=== PATIENT | male | born 1955 | race Caucasian/White ===

== ENCOUNTER 2018-03-07 01:22 | Outpatient (CLI) | payer BC, SELFPAY ==
--- NOTE | 2018-03-07 07:50 | DI.RAD_ITS ---
SYMPTOMS/DIAGNOSIS: PLEURITIC PAIN, HX PLEURISY, PERSONAL H/O OTHER DISEASE RESPIRATORY SYSTEM, PLEURODYNIA, R07.81 PA AND LATERAL CHEST: The heart is normal in size. The lungs are clear. The mediastinal structures and pleura appear intact. CONCLUSION: Normal chest. No evidence of acute cardiopulmonary disease.
== END 2018-03-07 01:42 ==
PROVIDERS: PCP Student in an Organized Health Care Education/Training Program; Visit Provider Student in an Organized Health Care Education/Training Program
DX: R07.81 Pleurodynia (principal); Z87.09 Personal history of other diseases of the respiratory system
CPT/HCPCS: 71046

== ENCOUNTER 2018-03-28 14:32 | Outpatient (CLI) | payer BC, SELFPAY ==
[2018-03-28 15:04] LABS: Hemoglobin A1C 5.5 % (4.5-6.2)
== END 2018-03-28 14:52 ==
PROVIDERS: PCP Student in an Organized Health Care Education/Training Program; Visit Provider Student in an Organized Health Care Education/Training Program
DX: R73.9 Hyperglycemia, unspecified (principal)
CPT/HCPCS: 36415; 83036

== ENCOUNTER 2018-04-07 12:39 | Emergency (ER) | payer BC, SELFPAY ==
[2018-04-07 12:44] VITALS: BP 151/93; PULSE 82; RESP 16; TEMP 36.7; O2SAT 96
--- NOTE | 2018-04-07 12:55 | W.ED.GENAD ---
Discharge Plan Disposition Patient Disposition: HOME Condition: Improving Discharge Details Chief Complaint: Nk/Back Pain Clinical Impression: Contusion of back Primary Care Provider: Soco Ni ED Provider: Giselle Vera Home Meds and New Rx's Prescriptions: New cyclobenzaprine 10 mg tablet 10 mg PO TID PRN (Reason: muscle spasm) Qty: 10 RF: 0 lidocaine [Lidoderm] 5 % adhesive patch,medicated 1 patch TP DAILY PRN (Reason: pain ) Qty: 15 RF: 0 ibuprofen 600 mg tablet 600 mg PO QID PRN (Reason: pain) Qty: 20 RF: 0 Continued carbamazepine [Carbatrol] 200 MG capsule, ER multiphase 12 hr 200 mg PO BID Qty: 60 RF: 0 carbamazepine [Carbatrol] 300 MG capsule, ER multiphase 12 hr 300 mg PO BID 60 Days RF: 0 acetaminophen [Acetaminophen Extra Strength] 500 MG tablet 1,000 mg PO Q6H PRN RF: 0 docusate sodium [Stool Softener] 100 MG capsule 100 mg PO PRN PRNRF: 0 aspirin [Aspir-81] 81 MG tablet,delayed release (DR/EC) 81 mg PO DAILY RF: 0 famotidine 20 MG tablet 20 mg PO DAILY RF: 0 meclizine 12.5 MG tablet 12.5 mg PO QID PRNQty: 20 RF: 1 cholecalciferol (vitamin D3) 2,000 UNIT tablet 2,000 unit PO DAILY RF: 0 atorvastatin [Lipitor] 80 MG tablet 80 mg PO DAILY Qty: 90 RF: 3 lisinopril-hydrochlorothiazide 1 EACH tablet 1 tab-cap PO DAILY Qty: 90 RF: 3 nitroglycerin 0.4 MG tablet, sublingual 0.4 mg Sublingual PRN Qty: 25 RF: 2 Discharge Instructions Instructions: Contusion in Adults (ED), Back Pain (ED) Additional Instructions: Encourage hydration. Encourage gentle stretching and frequent ambulation. Tylenol and/or ibuprofen as needed for discomfort. Flexeril as needed for spasm. Lidoderm patches as prescribed. Please follow-up with primary care if pain is not improving If you develop pain radiating into your extremities, altered sensation, change in bowel or bladder habits, increased pain, abdominal pain, fever/chills or other new/worsening symptoms please seek care urgently once again Stand Alone Forms: Work Release Referrals: Soco Ni DO [Primary Care Provider] - Discharge Data Discharge Date/Time-TO BE ENTERED AT DEPARTURE: 04/07/18 14:53 Medical Decision Making Patient is a 62 year old male, accompanied by sonjose, with c/c of left sided mid back pain. reports that yesterday he was exiting his appartment when he slipped on a step and fell backward landing on the step above with the left mid back. No midline tenderness. No paraspinal tenderness. Pain with rotation to the left but ROM otherwise without discomfort and intact. Neuro exam normal. He has incontinence at baseline, associated with prostate surgery, reports no change in this. Was able to gie a urine specimen. Post void residual 0. He feels tight over the mid lateral left back, this is area of discomfort. No pain with palpation/percussion over the left CVA but he does report that pain can be in this area, primarily inferior to this. UA will be obtained. He is concerned for rib fractures. No pain with inspiration, lungs are clear. No pain or instability with pelvic testing. Plan to XR left ribs to evaluate for any fracture. No abdominal pain on exam, no change in bowel or bladder habits. Patient given Ibuprofen, Flexeril and Lidoderm patch. XR reviewed by radiologist: FINDINGS: Bones/joints: No rib fracture or focal rib lesion. Normal bone density. Soft tissues: Normal. IMPRESSION: No fracture. Discussed findings with the patient. After about treatment, he reports that while he still has discomfort it is improving. He has been primarily sedentary since the incident yesterday, I encouraged gentle stretching and frequent ambulation. We discussed activities that he should avoid. Pain is improved to satisfactory level. Will prescribe Ibuprofen , Flexeril and Lidoderm patches. We discussed new/worsening symptomsand when to seek care urgently once again. Advised that this is likely musculoskeletal pain, no evidence of spinal injury. No hematuria, have low suspicion for kidney injury at this time. Advised f/u with PCP this week. 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 All of his questions and cocnerns were addressed, he is in agreement with this plan. HPI General Mode of arrival: ambulatory. Date/Time Provider Initiated Documentation: 04/07/18 12:55. Limitations to Documentation: no limitations. Information obtained by: patient, family (accompanied by son) and RN notes reviewed. History of Present Illness 62 year old M presents to the emergency department with the chief complaint of left sided mid back pain, described as moderate, with intensity rated at 8. Quality is described as aching, and is localized to the back. Patient reports no radiation. Patient started experiencing this day(s) and it has been constant. Immobilization improves symptom(s), Movement worsens symptoms . Patient notes no other symptoms.; denies chest pain, cough, fever/chills, loss of appetite, nausea/vomiting, rash, shortness of breath and weakness. Patient did receive the following treatments prior to arrival, other (Tylenol) Related Data Home Medications Medication Instructions Recorded Confirmed carbamazepine [Carbatrol] 200 mg PO BID #60 tab-cap 06/26/12 04/07/18 carbamazepine [Carbatrol] 300 mg PO BID 60 Days tab-cap 06/26/12 04/07/18 acetaminophen [Acetaminophen Extra 1,000 mg PO Q6H PRN tab-cap 06/10/15 04/07/18 Strength] docusate sodium [Stool Softener] 100 mg PO PRN PRN cap 08/17/15 04/07/18 aspirin [Aspir-81] 81 mg PO DAILY tab-cap 03/16/16 04/07/18 famotidine 20 mg PO DAILY tab-cap 05/23/16 04/07/18 meclizine 12.5 mg PO QID PRN #20 tab-cap 01/02/17 04/07/18 cholecalciferol (vitamin D3) 2,000 unit PO DAILY 01/23/17 04/07/18 atorvastatin [Lipitor] 80 mg PO DAILY #90 tab 08/11/17 04/07/18 lisinopril-hydrochlorothiazide 1 tab-cap PO DAILY #90 tab-cap 08/11/17 04/07/18 nitroglycerin 0.4 mg SUBLINGUAL PRN #25 tab 08/11/17 04/07/18 cyclobenzaprine 10 mg PO TID PRN #10 tab 04/07/18 ibuprofen 600 mg PO QID PRN #20 tab 04/07/18 lidocaine [Lidoderm] 1 patch TP DAILY PRN #15 each 04/07/18 Previous Rx's Medication Instructions Recorded atorvastatin [Lipitor] 80 mg PO DAILY #90 tab 08/11/17 lisinopril-hydrochlorothiazide 1 tab-cap PO DAILY #90 tab-cap 08/11/17 nitroglycerin 0.4 mg SUBLINGUAL PRN #25 tab 08/11/17 cyclobenzaprine 10 mg PO TID PRN #10 tab 04/07/18 ibuprofen 600 mg PO QID PRN #20 tab 04/07/18 lidocaine [Lidoderm] 1 patch TP DAILY PRN #15 each 04/07/18 Allergies Allergy/AdvReac Type Severity Reaction Status Date / Time erythromycin base Allergy Unknown DUE TO Verified 04/07/18 12:49 CARBATROL amitriptyline AdvReac Mild h/o wt gain Verified 04/07/18 12:49 General Stated Complaint: Nk/Back Pain NATHAN: 3 Review of Systems Constitutional Reports as per HPI, Denies chills, Denies fever(s), Denies headache(s), Denies lethargy and Denies poor appetite Eyes Denies change in vision ENT Denies headache(s) and Denies neck pain Cardiovascular Reports as per HPI, Denies dyspnea and Denies dyspnea on exertion Respiratory Denies dyspnea, Denies dyspnea on exertion and Denies wheezing Gastrointestinal Reports as per HPI, Denies abdominal pain, Denies fecal incontinence, Denies diarrhea, Denies nausea and Denies vomiting Genitourinary Reports urinary incontinence (reports mild incontinence at baseline, no change in this since fall) Musculoskeletal Reports as per HPI, Denies abnormal gait, Reports back pain, Denies joint swelling, Reports muscle cramps, Denies muscle weakness, Denies neck pain, Denies numbness, Denies radiating pain into limb, Reports stiffness and Denies tingling Integumentary/Breasts Reports as per HPI and Denies rash Neurologic Denies abnormal gait, Denies headache(s), Denies numbness and Denies tingling Allergic/Immunologic Denies wheezing [facility] Medical History Vitamin D deficiency (Acute 06/22/09) Sleep apnea in adult (Acute) Situational mixed anxiety and depressive disorder (Acute 01/26/15) Right shoulder pain (Acute 10/05/15) Right rotator cuff tendinitis (Acute 07/11/15) Primary malignant neoplasm of prostate (Acute 07/20/08) Other convulsions (Acute 03/12/89) Osteopenia of multiple sites (Acute 01/18/17) Other convulsions (Acute 03/12/89) Hyperlipidemia (Acute 07/11/11) Hearing loss (Acute 07/11/11) Gastroesophageal reflux disease (Acute 04/29/13) Essential hypertension (Acute 03/12/99) Dysthymic disorder (Acute 07/11/99) Coronary artery disease involving [place] coronary artery of [place] heart without angina pectoris (Acute 04/26/09) Abnormal GGT test (Acute) Atherosclerosis of [place] coronary artery of [place] heart without angina pectoris Essential hypertension GERD (gastroesophageal reflux disease) Neoplasm of prostate Sleep apnea Surgical History Colonoscopy - MAC (12/16/15) Coronary Stent (04/12/09) EGD - IV Sedation (10/29/10) Prostatectomy (12/01/11) Tonsillectomy (~1961) Trigger Finger release (04/21/15) Family History Mother Essential hypertension Heart disease Father Personal history of malignant neoplasm Stroke Brother Age: 59 No problems noted. Social History current occupation: [employer] Smoking/Tobacco Use Status: Never alcohol intake: current alcohol intake frequency: holidays/special occasions only substance use type: does not use Exam Const General: cooperative, healthy appearing, comfortable, no acute distress and well developed Nutritional Appearance: average body habitus and well nourished Orientation: alert, awake and oriented x3 HENMT Head: normal to inspection Ears: hearing grossly normal bilaterally Mouth: moist mucous membranes Chest Chest: normal inspection of the chest, normal palpation of entire chest wall and no crepitus Resp Effort & Inspection: normal respiratory effort, able to speak in complete sentences and no respiratory distress Auscultation: clear to auscultation bilaterally, no rales, no rhonchi and no wheezes Cardio Rate: regular rate Rhythm: regular rhythm Heart Sounds: S1 normal and S2 normal GI Inspection: normal to inspection, no edema and non-distended Palpation: soft, no hepatosplenomegaly, not firm, no guarding, not rigid and nontender Auscultation: normal bowel sounds Back/Spine/Pelvis Back: CVA tenderness (left sided, this is the upper most aspect of area of discomfort, no pain wi), No mass, No erythema, No warmth and No Rutledge-Canchola sign present Cervical Spine: normal cervical lordosis and cervical ROM normal Thoracic/Lumbar Spine: No surgical scar(s) present, straight leg raise negative bilaterally, pain with thoraco-lumbar ROM (pain with rotation to the left, no pain otherwise), No paraspinal tenderness, thoraco-lumbar spasm (feels tight along left lateral mid back), No thoracic spinal tenderness and No lumbar spinal tenderness Pelvis: no pain with anterior-posterior compression, no pain with lateral compression, no buttock ecchymosis, no buttock tenderness and no buttock swelling Sacroiliac joints: bilaterally nontender Sacrum: no tenderness Skin General skin exam: no rashes or lesions noted Trauma: no lacerations or abrasions Neuro General: alert, awake, oriented x3, gait normal, tone normal and moves all extremities Cognition: normal cognition Speech: speech normal Gait: normal gait Motor: muscle tone normal throughout, strength 5/5 throughout, no movement abnormalities noted and no fasciculations Sensory Exam: no sensory deficits noted (no saddle paresthesias) and lower extremity (normal) DTR's: Rt Patellar: 2+, Lt Patellar: 2+, Rt Ankle: 2+ and Lt Ankle: 2+ Plantar Reflexes: Downgoing: bilateral Extrem General: normal to inspection, normal capillary refill, no pedal edema, no calf tenderness and normal gait Psych Appearance: grossly normal and well kempt Mental Status: mental status grossly normal Speech and Movement: speech and movement normal Course Vital Signs Temperature 36.7 C 04/07/18 12:44 Pulse 82 04/07/18 12:44 Respiratory Rate 16 04/07/18 12:44 Blood Pressure 151/93 H 04/07/18 12:44 Pulse Oximetry 96 04/07/18 12:44 Temperature 36.7 C 04/07/18 12:44 Temperature Source Temporal Artery Scan 04/07/18 12:44 Pulse 82 04/07/18 12:44 Respiratory Rate 16 04/07/18 12:44 Respiratory Effort Non-Labored 04/07/18 12:47 Blood Pressure 151/93 H 04/07/18 12:44 Blood Pressure Position Sitting 04/07/18 12:44 Pulse Oximetry 96 04/07/18 12:44 Oxygen Delivery Method Room Air 04/07/18 12:44 Oxygen Flow Rate 0 04/07/18 12:44 Pain Level 8 04/07/18 12:44
[2018-04-07 13:05] LABS: Bilirubin Negative (Negative); Blood Negative (Negative); Clarity Clear; Glucose Negative (Negative); Ketones 15 mg/dL (Negative); Leukocyte Esterase Negative (Negative); Nitrite Negative (Negative); Urobilinogen 0.2 EU/dL (Up TO 0.2)
--- NOTE | 2018-04-07 13:11 | DI.RAD_ITS ---
SYMPTOM/DIAGNOSIS: FELL, LT LATERAL LOWER PAIN LEFT RIBS AND PA AND LATERAL CHEST: Comparison is made with chest xray dated 03/07/18. The heart size is normal. The aorta is mildly tortuous. The lungs are clear. No pneumothorax is seen. Three views of the ribs were performed. No fracture is identified. IMPRESSION: Negative chest and left ribs.
[2018-04-07 13:21] LABS: Bacteria Negative HPF (Negative); C & S Indicated? No; Casts Negative LPF (Negative); Crystals Negative HPF (Negative); Epithelial Cells Negative HPF (Negative); Mucus Trace (Negative); RBC Negative (0-2); WBC 0-2 HPF (0-5)
[2018-04-07] MEDS: Ibuprofen 600 MG TAB PO (13:57)
[2018-04-07] MEDS: Cyclobenzaprine 10 MG TAB PO (13:57)
[2018-04-07] MEDS: Lidocaine 5% Patch 1 PATCH TP (14:01)
--- NOTE | 2018-04-07 14:12 | DI.VRAD_ITS ---
EXAM: XR Left Ribs, 2 Views EXAM DATE/TIME: 04/07/2018 1:13 PM CLINICAL HISTORY: 62 years old, male; Injury or trauma; Fall; Initial encounter; Blunt trauma (contusions or hematomas); Rib area, left side; Injury details: Bb symone point of pain TECHNIQUE: XR Left ribs 2 views. COMPARISON: CR XR CHEST 2V PA LATERAL 03/07/2018 7:53 AM FINDINGS: Bones/joints: No rib fracture or focal rib lesion. Normal bone density. Soft tissues: Normal. IMPRESSION: No fracture. EXAM: XR Chest, 2 Views EXAM DATE/TIME: 04/07/2018 1:13 PM CLINICAL HISTORY: 62 years old, male; Injury or trauma; Fall; Initial encounter; Blunt trauma (contusions or hematomas); Rib area, left side; Injury details: Bb symone point of pain TECHNIQUE: XR of the chest, 2 views. COMPARISON: CR XR CHEST 2V PA LATERAL 03/07/2018 7:53 AM FINDINGS: The cardiomediastinal silhouette and pulmonary vasculature are within normal limits. The lungs are clear. No pleural effusion or pneumothorax is identified. Degenerative spondylosis of the thoracic spine. No fracture. IMPRESSION: No acute process. Dictated and Authenticated by: Seven Coe MD. Ordering:ELVIRA Desai MD
== END 2018-04-07 14:53 | disposition home or self-care (01) ==
PROVIDERS: Emergency Provider Physician Assistant; PCP Student in an Organized Health Care Education/Training Program
DX: S20.222A Contusion of left back wall of thorax, initial encounter (principal); W10.8XXA Fall (on) (from) other stairs and steps, initial encounter
CPT/HCPCS: 99283; 71046; 71100; 81003; 81015

== ENCOUNTER 2018-08-07 07:28 | Outpatient (CLI) | payer BC, SELFPAY ==
[2018-08-07 08:47] LABS: ALT 31 U/L (12-78); AST 21 U/L (15-37); Albumin 3.6 g/dL (3.4-5.0); Alkaline Phosphatase 106 U/L (46-116); Anion Gap 8.3 mmol/L (3-11); BUN 14 mg/dL (7-18); Bilirubin, Total 0.4 mg/dL (0.2-1.0); CO2 28.7 mmol/L (21.0-32.0); Chloride 101 mmol/L (98-107); Cholesterol 163 mg/dL (50-200); Glucose 92 mg/dL (70-100); HDL Cholesterol 49 mg/dL (40-60); LDL CHOLESTEROL 83 mg/dL (<100); Sodium 138 mmol/L (136-145); TSH (W/Ref FT4) 1.18 uIU/mL (0.358-3.74); Total Protein 6.9 g/dL (6.4-8.2); Triglyceride 134 mg/dL (30-150)
[2018-08-08 06:36] LABS: Vitamin D 25 Total 40.4 ng/ml (30-100)
== END 2018-08-07 07:48 ==
PROVIDERS: PCP Student in an Organized Health Care Education/Training Program; Visit Provider Student in an Organized Health Care Education/Training Program
DX: Z13.220 Encounter for screening for lipoid disorders (principal); R53.83 Other fatigue; E55.9 Vitamin D deficiency, unspecified; N28.9 Disorder of kidney and ureter, unspecified
CPT/HCPCS: 36415; 80053; 80061; 82306; 83721; 84443

== ENCOUNTER 2019-09-05 13:13 | Emergency (ER) | payer OTHER, SELFPAY ==
[2019-09-05 13:32] VITALS: BP 132/76; PULSE 88; RESP 16; TEMP 37.1; O2SAT 99
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
[2019-09-05] MEDS: Acetaminophen 500 MG TAB PO (13:50)
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
[2019-09-05 15:21] VITALS: BP 132/76; PULSE 88; RESP 16; TEMP 37.1; O2SAT 99
== END 2019-09-05 15:10 | disposition home or self-care (01) ==
PROVIDERS: Emergency Provider Registered Nurse Emergency; PCP Student in an Organized Health Care Education/Training Program
DX: S42.032A Displaced fracture of lateral end of left clavicle, initial encounter for closed fracture (principal); S22.41XA Multiple fractures of ribs, right side, initial encounter for closed fracture; V18.0XXA Pedal cycle driver injured in noncollision transport accident in nontraffic accident, initial encounter; Y93.55 Activity, bike riding; I10 Essential (primary) hypertension
CPT/HCPCS: 23500; 99284; 73030; 99283; L3650

== ENCOUNTER 2019-09-17 11:12 | Outpatient (CLI) | payer OTHER, SELFPAY ==
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
== END 2019-09-17 11:32 ==
PROVIDERS: PCP Student in an Organized Health Care Education/Training Program; Visit Provider Student in an Organized Health Care Education/Training Program
DX: S42.032D Displaced fracture of lateral end of left clavicle, subsequent encounter for fracture with routine healing (principal); S42.001A Fracture of unspecified part of right clavicle, initial encounter for closed fracture; S22.41XA Multiple fractures of ribs, right side, initial encounter for closed fracture; V19.9XXA Pedal cyclist (driver) (passenger) injured in unspecified traffic accident, initial encounter; Y93.55 Activity, bike riding
CPT/HCPCS: 99204; 99215; 73000

== ENCOUNTER 2019-10-01 04:01 | Outpatient (CLI) | payer OTHER, SELFPAY ==
[2019-10-01 09:27] LABS: ALT 31 U/L (16-63); AST 21 U/L (15-37); Alkaline Phosphatase 133 U/L (46-116); Anion Gap 8.2 mmol/L (3-11); BUN 26 mg/dL (7-18); Bilirubin, Total 0.3 mg/dL (0.2-1.0); CO2 29.8 mmol/L (21.0-32.0); CREATININE 1.07 mg/dL (0.70-1.30); Calcium 9.4 mg/dL (8.5-10.1); Chloride 104 mmol/L (98-107); Glucose 92 mg/dL (74-106); Potassium 3.9 mmol/L (3.5-5.1); Sodium 142 mmol/L (136-145); Total Protein 7.2 g/dL (6.4-8.2)
== END 2019-10-01 04:21 ==
PROVIDERS: PCP Student in an Organized Health Care Education/Training Program; Visit Provider Student in an Organized Health Care Education/Training Program
DX: T39.1X1A Poisoning by 4-Aminophenol derivatives, accidental (unintentional), initial encounter (principal); Z79.1 Long term (current) use of non-steroidal anti-inflammatories (NSAID)
CPT/HCPCS: 36415; 80053

== ENCOUNTER 2019-10-29 09:53 | Outpatient (CLI) | payer OTHER, SELFPAY ==
--- NOTE | 2019-10-29 09:15 | DI.RAD_ITS ---
EXAM: XR CLAVICLE RT INDICATION: fu right shoulder pain. COMPARISON: No exams were available for comparison TECHNIQUE: 2D digital imaging was performed. FINDINGS: There has been no change in the alignment of the distal clavicle fracture. DATA REPOSITORY: RADIATION DOSE DELIVERED:
== END 2019-10-29 10:13 ==
PROVIDERS: PCP Student in an Organized Health Care Education/Training Program; Referring Provider Student in an Organized Health Care Education/Training Program; Visit Provider Student in an Organized Health Care Education/Training Program
DX: S42.031D Displaced fracture of lateral end of right clavicle, subsequent encounter for fracture with routine healing (principal); M25.511 Pain in right shoulder; V19.9XXD Pedal cyclist (driver) (passenger) injured in unspecified traffic accident, subsequent encounter; I10 Essential (primary) hypertension
CPT/HCPCS: 99213; 73000

== ENCOUNTER 2019-12-10 10:37 | Outpatient (CLI) | payer OTHER, SELFPAY ==
--- NOTE | 2019-12-10 08:30 | DI.RAD_ITS ---
EXAM: XR CLAVICLE RT INDICATION: fu right shoulder. COMPARISON: CR XR SHOULDER RT COMPLETE 2+V from 09/05/2019 CR XR CLAVICLE RT from 10/29/2019 TECHNIQUE: 2D digital imaging was performed. FINDINGS: Has been no change in alignment of the distal clavicle fracture. No bony bridging is seen at this ti me. Degenerative changes are again noted of the AC joint and glenohumeral joint. There are old righ t rib fractures. DATA REPOSITORY: RADIATION DOSE DELIVERED:
== END 2019-12-10 10:57 ==
PROVIDERS: PCP Student in an Organized Health Care Education/Training Program; Referring Provider Student in an Organized Health Care Education/Training Program; Visit Provider Student in an Organized Health Care Education/Training Program
DX: S42.031D Displaced fracture of lateral end of right clavicle, subsequent encounter for fracture with routine healing (principal); M19.011 Primary osteoarthritis, right shoulder; S42.001A Fracture of unspecified part of right clavicle, initial encounter for closed fracture; V19.9XXA Pedal cyclist (driver) (passenger) injured in unspecified traffic accident, initial encounter; M25.511 Pain in right shoulder; I10 Essential (primary) hypertension
CPT/HCPCS: 99214; 73000

== ENCOUNTER 2020-02-16 16:51 | Emergency (ER) | payer OTHER, SELFPAY ==
[2020-02-16 16:54] VITALS: BP 162/97; PULSE 90; RESP 16; TEMP 36.6; O2SAT 96
--- NOTE | 2020-02-16 17:00 | DI.CT_ITS ---
EXAM: CT HEAD CERVICAL SPINE WO COMPARISON: No exams were available for comparison FINDINGS: CT examination of the cervical spine was performed without contrast administration. There moderate degenerative changes the cervical spine. There is no evidence of acute cervical spine fracture or dislocation. Intervertebral disc spaces are well maintained. Tracheolaryngeal structures appear intact. No cervical mass or adenopathy. Noncontrast cranial CT was performed. There are changes moderate cerebral atrophy and there are patchy areas of decreased attenuation periv entricular white matter consistent with microvascular ischemic change. No evidence of acute intracranial hemorrhage, mass effect, or midline shift. No calvarial fracture. The orbital and temporal bone structures appear intact. Visualized mastoid air cells and paranasal sinuses appear clear. IMPRESSION: No evidence of acute cervical spine injury. No evidence of acute intracranial injury. RADIATION DOSE DELIVERED: 1,070.62mGy.cm Total DLP 1,070.62mGy.cm Total DLP DATA REPOSITORY: All CT scans at this facility are submitted to the National Radiology Data Registry (NRDR) Dose Index Registry (DIR) with the [employer] (ACR). RADIATION OPTIMIZATION: All CT scans at this facility use at least one of these dose optimization te chniques: automated exposure control; mA and/or kV adjustment per patient size (includes targeted exa ms where dose is matched to clinical indication); or iterative reconstruction.
--- NOTE | 2020-02-16 17:01 | W.ED.GENAD ---
Discharge Plan Disposition Patient Disposition: HOME Condition: Stable Discharge Details Clinical Impression: Head injury Primary Care Provider: Soco Ni ED Provider: Piper Gabriel Home Meds and New Rx's Prescriptions: No Action nitroglycerin 0.4 mg tablet, sublingual 0.4 mg Sublingual PRN Qty: 25 RF: 2 carbamazepine [Carbatrol] 200 MG capsule, ER multiphase 12 hr 200 mg PO BID Qty: 60 RF: 0 carbamazepine [Carbatrol] 300 MG capsule, ER multiphase 12 hr 300 mg PO BID 60 Days RF: 0 acetaminophen [Acetaminophen Extra Strength] 500 MG tablet 1,000 mg PO Q6H PRN RF: 0 docusate sodium [Stool Softener] 100 MG capsule 100 mg PO PRN PRNRF: 0 aspirin [Aspir-81] 81 MG tablet,delayed release (DR/EC) 81 mg PO DAILY RF: 0 famotidine 20 MG tablet 20 mg PO DAILY RF: 0 cholecalciferol (vitamin D3) 2,000 UNIT tablet 2,000 unit PO DAILY RF: 0 lisinopril-hydrochlorothiazide 20-12.5 mg tablet 1 tab PO DAILY Qty: 90 RF: 3 meclizine 12.5 mg tablet 12.5 mg PO QID PRN (Reason: vertigo) Qty: 20 RF: 1 Hold Instructions: taking OTC atorvastatin [Lipitor] 80 mg tablet 80 mg PO DAILY Qty: 90 RF: 3 lidocaine [Lidoderm] 5 % adhesive patch,medicated 1 patch TP DAILY PRN (Reason: pain ) Qty: 15 RF: 0 ibuprofen 600 mg tablet 600 mg PO QID PRN (Reason: pain) Qty: 20 RF: 0 Discharge Instructions Instructions: Head Injury (ED) Additional Instructions: Keep diet light for the next 1 to 2 days. You can experience nausea. Can use acetaminophen 650 mg every 4 hours as needed for pain and can add ibuprofen 600 mg with food 4 times daily for more severe or breakthrough pain. Use ice 20 minutes 4-5 times daily to affected areas Return sooner for new or worsening symptoms Referrals: Soco Ni DO [Primary Care Provider] - Medical Decision Making mechanical fall on ice, head injury, no loc. no symptoms other than mild headache. declines acetaminophen CT head and cspine negative. prn outpatient f/u Medical Records Medical records reviewed: Yes I reviewed the patient's medical records. Medical records narrative: PROCEDURE INFORMATION: Exam: CT Head Without Contrast Exam date and time: 02/16/2020 5:38 PM Age: 64 years old Clinical indication: Injury or trauma; Fall; Blunt trauma (contusions or hematomas) TECHNIQUE: Imaging protocol: Computed tomography of the head without contrast. COMPARISON: No relevant prior studies available. FINDINGS: Brain: Nonspecific hypodensities of the periventricular and deep subcortical white matter, most likely secondary to chronic small vessel ischemic change. No intracranial hemorrhage or extra-axial fluid collection. No evidence of mass effect or midline shift. Rutledge-white matter differentiation is normal. Cerebral ventricles: Prominence of the ventricles and sulci, most likely attributed to parenchymal volume loss. Bones/joints: No acute osseus lesion or fracture. Paranasal sinuses: Visualized sinuses are unremarkable. No fluid levels. Mastoid air cells: Unremarkable. Soft tissues: Small left parietal scalp contusion. IMPRESSION: 1. No acute intracranial pathology. 2. Small left parietal scalp contusion. 3. Chronic findings, as above. PROCEDURE INFORMATION: Exam: CT Cervical Spine Without Contrast Exam date and time: 02/16/2020 5:38 PM Age: 64 years old Clinical indication: Injury or trauma; Fall; Blunt trauma (contusions or hematomas) TECHNIQUE: Imaging protocol: Computed tomography images of the cervical spine without contrast. COMPARISON: No relevant prior studies available. FINDINGS: Bones/joints: Vertebral body heights are maintained. No locked or perched facets. Multilevel facet arthropathy. No acute cervical spine fracture. The dens is intact. Atlanto-axial intervals are normal. Discs/Spinal canal/Neural foramina: Multilevel degenerative changes with intervertebral disc height loss and osteophyte formation. No significant spinal stenosis. Soft tissues: Unremarkable. Lungs: Lung apices are clear. IMPRESSION: No acute cervical spine fracture. Dictated and Authenticated by: Gonzalo Mejia MD. Ordering:COOPER Saldaña MD [facility] General Mode of arrival: EMS. Date/Time Provider Initiated Documentation: 02/16/20 17:00. Limitations to Documentation: no limitations. Information obtained by: patient. HPI Narrative: Patient presents for evaluation by EMS after he had a mechanical fall while working. He slipped on ice fell backwards striking his head. He does not recall the fall itself but remembers hitting his head. He denies any nausea vomiting neck pain visual disturbances or other complaints. He states he has minimal tenderness to the back of his head Related Data Home Medications Medication Instructions Recorded Confirmed carbamazepine [Carbatrol] 200 mg PO BID #60 tab-cap 06/26/12 02/16/20 carbamazepine [Carbatrol] 300 mg PO BID 60 Days tab-cap 06/26/12 02/16/20 acetaminophen [Acetaminophen Extra 1,000 mg PO Q6H PRN tab-cap 06/10/15 02/16/20 Strength] docusate sodium [Stool Softener] 100 mg PO PRN PRN cap 08/17/15 02/16/20 aspirin [Aspir-81] 81 mg PO DAILY tab-cap 03/16/16 02/16/20 famotidine 20 mg PO DAILY tab-cap 05/23/16 02/16/20 cholecalciferol (vitamin D3) 2,000 unit PO DAILY 01/23/17 02/16/20 ibuprofen 600 mg PO QID PRN #20 tab 04/07/18 02/16/20 lidocaine [Lidoderm] 1 patch TP DAILY PRN #15 each 04/07/18 02/16/20 nitroglycerin 0.4 mg sublingual 0.4 mg SUBLINGUAL PRN #25 tab 06/26/19 02/16/20 tablet lisinopril 20 1 tab PO DAILY #90 tab-cap 07/22/19 02/16/20 mg-hydrochlorothiazide 12.5 mg tablet meclizine 12.5 mg tablet 12.5 mg PO QID PRN #20 tab-cap 08/19/19 02/16/20 atorvastatin 80 mg tablet 80 mg PO DAILY #90 tab 09/03/19 02/16/20 Previous Rx's Medication Instructions Recorded ibuprofen 600 mg PO QID PRN #20 tab 04/07/18 lidocaine [Lidoderm] 1 patch TP DAILY PRN #15 each 04/07/18 nitroglycerin 0.4 mg sublingual 0.4 mg SUBLINGUAL PRN #25 tab 06/26/19 tablet lisinopril 20 1 tab PO DAILY #90 tab-cap 07/22/19 mg-hydrochlorothiazide 12.5 mg tablet meclizine 12.5 mg tablet 12.5 mg PO QID PRN #20 tab-cap 08/19/19 atorvastatin 80 mg tablet 80 mg PO DAILY #90 tab 09/03/19 Allergies Allergy/AdvReac Type Severity Reaction Status Date / Time amitriptyline AdvReac Mild h/o wt gain Verified 02/16/20 17:00 erythromycin base AdvReac Unknown DUE TO Verified 02/16/20 17:00 CARBATROL General Stated Complaint: HeadInjury NATHAN: 3 Review of Systems Constitutional Constitutional: Denies body ache(s) and Denies weakness Eyes Eyes: Denies blurry vision and Denies change in vision ENT Ears, Nose, Mouth, and Throat: Denies neck pain Cardiovascular Cardiovascular: Denies chest pain Respiratory Respiratory: Denies chest congestion and Denies cough Gastrointestinal Gastrointestinal: Denies nausea and Denies vomiting Musculoskeletal Musculoskeletal: Denies back pain and Denies neck pain Integumentary/Breasts Skin/Breast: Denies lesions and Denies rash Neurologic Neurologic: Denies weakness [facility] Medical History (Updated 02/16/20 @ 17:57 by Piper Gabriel NP) Abnormal GGT test 150 when Alk Phos slightly abnl 2014, trending down but no expln: no EtOH, Nl abd US 06/2015 Atherosclerosis of [place] coronary artery of [place] heart without angina pectoris Coronary artery disease involving [place] coronary artery of [place] heart without angina pectoris (04/26/09) nonSTEMI, STENT x 4, [facility]; EF 65% Dysthymic disorder (07/11/99) Monitoring as mother's is recent and brings near-tears quickly. Essential hypertension Essential hypertension (03/12/99) treated possibly even earlier than 1999; pos FH. well-controlled (127/82 today, 07/27/17 despite mtg new pcp, discussing stressful med Hx and having mo recently pass away. ik SBP elevated, monitor 01/25/18. Acceptable 137/79, 07/25/18. Gastroesophageal reflux disease (04/29/13) h/o meat impaction; last EGD 10/2010, [facility], chronic H2 ana OR PPI rec lifetime due to GERD/impaction. discussed H2 vs PPI, I'm glad H2Blkr has helped as I prefer it over PPI. Savoring meal, chewing more completely. Dx of pancreatic rest ... DOES THIS NEED Q2-5- year EGDs? GERD (gastroesophageal reflux disease) Hearing loss (07/11/11) LEFT WORSE ON HEARING CHECK Hyperlipidemia (07/11/11) goal LDL<70 Neoplasm of prostate Osteopenia of multiple sites (01/18/17) left hip T score -0.6, Lumbar spine T score -2.0, Reviewed with Dr. Ann Jan 2017, recommended wt-bearing exercise, sufficient calcium and vit D, which it sounds like he's getting. Follows up with Dr. Hernandez [[facility]] for seizures and had a DEXAscan per her request. Other convulsions (03/12/89) VIRI BURGER PRIOR TO 1994 Other convulsions (03/12/89) VIRI BURGER PRIOR TO 1994 Primary malignant neoplasm of prostate (07/20/08) BX 09; RPT BX 06/21: --> robotic prostatectomy 12/01/11;ED, some urgency associated s/p surgery. Considered prosth, injections, no action at this time. ik, 07/2017 Discssed possible PSA screenings (D/C'd by [facility] Urol, Dr. Webber in 2016 with years of undetectable PSAs [ ] sending inquiry to Dr. Webber about 2-3-5 ear FU needs. ik, 07/25/18 Right rotator cuff tendinitis (07/11/15) consult Dr Faria 05/2016; PT Sean Green Right shoulder pain (10/05/15) initially thought due to Atorvastatin, onset 2 mos prior to September visit, no trauma Situational mixed anxiety and depressive disorder (01/26/15) job issues Sleep apnea Sleep apnea in adult C-PAP per [facility], not tolerated ; mild, last eval 2001 [facility] C-pap 03/20/16 Vertigo Acute (4 days) on chronic issue (Hx meclizine helping). Vitamin D deficiency (06/22/09) Surgical History Colonoscopy - MAC (12/16/15) Coronary Stent (04/12/09) [facility] EGD - IV Sedation (10/29/10) WALKO; PATH NEG FOR EOSINOPHILIC ESOPHAGITIS OR BARRETS Prostatectomy (12/01/11) NERVE SPARING, ROBOTIC PROSTATECTOMY, DR BECERRA, [facility] Tonsillectomy (~1961) Trigger Finger release (04/21/15) on left Dr. Mccarthy. Family History Mother Essential hypertension Heart disease Father Personal history of malignant neoplasm Stroke Brother Age: 61 No problems noted. 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 Current gender identity: male What type of physical activity do you participate in: none Do you feel safe at home: Yes Do you feel safe in your relationship?: Yes Exam Const General: cooperative, healthy appearing, comfortable and no acute distress Nutritional Appearance: average body habitus Orientation: alert, awake and oriented x3 HENMT Head: normal to inspection, no palpable skull fracture, normocephalic, no abrasions, no hematomas and no lacerations Face and sinus: normal facial exam Mouth: oral mucosae normal Resp Effort & Inspection: normal respiratory effort Cardio Rate: regular rate Rhythm: regular rhythm GI Inspection: normal to inspection Skin General skin exam: no rashes or lesions noted Neuro General: patient alert, patient awake, patient oriented x3, gait normal, moves all extremities and no focal motor deficits Cranial Nerves: CN's II-XI intact bilaterally, PERRL, EOM intact bilaterally and no nystagmus Cognition: normal cognition Speech: speech normal Gait: normal gait Motor: muscle tone normal throughout Extrem General: normal to inspection, full ROM and no pedal edema Course Vital Signs Vital signs: Vital Signs Temperature 36.6 C 02/16/20 16:54 Pulse 90 02/16/20 16:54 Respiratory Rate 16 02/16/20 16:54 Blood Pressure 162/97 H 02/16/20 16:54 Pulse Oximetry 96 02/16/20 16:54 Temperature 36.6 C 02/16/20 16:54 Temperature Source Skin 02/16/20 16:54 Pulse 90 02/16/20 16:54 Respiratory Rate 16 02/16/20 16:54 Respiratory Effort Non-Labored 02/16/20 16:54 Blood Pressure 162/97 H 02/16/20 16:54 Blood Pressure Position Sitting 02/16/20 16:54 Pulse Oximetry 96 02/16/20 16:54 Oxygen Delivery Method Room Air 02/16/20 16:54 Oxygen Flow Rate 0 02/16/20 16:54 Pain Level 1 02/16/20 16:54
--- NOTE | 2020-02-16 17:53 | DI.VRAD_ITS ---
PROCEDURE INFORMATION: Exam: CT Head Without Contrast Exam date and time: 02/16/2020 5:38 PM Age: 64 years old Clinical indication: Injury or trauma; Fall; Blunt trauma (contusions or hematomas) TECHNIQUE: Imaging protocol: Computed tomography of the head without contrast. COMPARISON: No relevant prior studies available. FINDINGS: Brain: Nonspecific hypodensities of the periventricular and deep subcortical white matter, most likely secondary to chronic small vessel ischemic change. No intracranial hemorrhage or extra-axial fluid collection. No evidence of mass effect or midline shift. Rutledge-white matter differentiation is normal. Cerebral ventricles: Prominence of the ventricles and sulci, most likely attributed to parenchymal volume loss. Bones/joints: No acute osseus lesion or fracture. Paranasal sinuses: Visualized sinuses are unremarkable. No fluid levels. Mastoid air cells: Unremarkable. Soft tissues: Small left parietal scalp contusion. IMPRESSION: 1. No acute intracranial pathology. 2. Small left parietal scalp contusion. 3. Chronic findings, as above. PROCEDURE INFORMATION: Exam: CT Cervical Spine Without Contrast Exam date and time: 02/16/2020 5:38 PM Age: 64 years old Clinical indication: Injury or trauma; Fall; Blunt trauma (contusions or hematomas) TECHNIQUE: Imaging protocol: Computed tomography images of the cervical spine without contrast. COMPARISON: No relevant prior studies available. FINDINGS: Bones/joints: Vertebral body heights are maintained. No locked or perched facets. Multilevel facet arthropathy. No acute cervical spine fracture. The dens is intact. Atlanto-axial intervals are normal. Discs/Spinal canal/Neural foramina: Multilevel degenerative changes with intervertebral disc height loss and osteophyte formation. No significant spinal stenosis. Soft tissues: Unremarkable. Lungs: Lung apices are clear. IMPRESSION: No acute cervical spine fracture. Dictated and Authenticated by: Gonzalo Mejia MD. Ordering:COOPER Saldaña MD
[2020-02-16 18:01] VITALS: BP 140/86; PULSE 87; RESP 16; TEMP 37.2; O2SAT 96
== END 2020-02-16 18:08 | disposition home or self-care (01) ==
PROVIDERS: Emergency Provider Nurse Practitioner Acute Care; PCP Student in an Organized Health Care Education/Training Program
DX: S00.03XA Contusion of scalp, initial encounter (principal); W00.0XXA Fall on same level due to ice and snow, initial encounter; Y99.0 Civilian activity done for income or pay; R51.9 Headache, unspecified; I10 Essential (primary) hypertension
CPT/HCPCS: 99284; 70450; 72125

== ENCOUNTER 2020-03-24 15:03 | Outpatient (CLI) | payer OTHER, SELFPAY ==
--- NOTE | 2020-03-24 14:00 | DI.RAD_ITS ---
EXAM: XR CLAVICLE RT CLINICAL HISTORY: R clavicle fx. TECHNIQUE: 2D digital imaging was performed. COMPARISON: CR XR CLAVICLE RT from 12/10/2019 FINDINGS: There has been some healing at the fracture site the lateral aspect of the right clavicle. Fracture still visible but there does appear to been slight further healing. AC joint is not distracted. IMPRESSION: DATA REPOSITORY: RADIATION DOSE DELIVERED:
== END 2020-03-24 15:23 ==
PROVIDERS: PCP Student in an Organized Health Care Education/Training Program; Visit Provider Physician Assistant
DX: S42.031A Displaced fracture of lateral end of right clavicle, initial encounter for closed fracture (principal); S42.001D Fracture of unspecified part of right clavicle, subsequent encounter for fracture with routine healing; V19.9XXD Pedal cyclist (driver) (passenger) injured in unspecified traffic accident, subsequent encounter
CPT/HCPCS: 99213; 73000

== ENCOUNTER 2021-05-09 09:56 | Emergency (ER) | payer MEDICARE, SELFPAY ==
[2021-05-09] VITALS (12 sets, daily range): BP systolic 131–182; BP diastolic 78–103; PULSE 70–82; RESP 9–19; TEMP 36.6; O2SAT 96–100
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
--- NOTE | 2021-05-09 10:00 | RT.EKG_ITS ---
APPROVED REPORT Exam: Resting ECG Reason for Exam: arm pain Patient Location: E HR:71 bpm ECG Measurements Heart Rate 71 AXIS OR 174 P 35 QRSd 102 QRS -9 QT 418 T 45 QTc 454 Conclusion Sinus rhythm...normal P axis, V-rate 60- 99. Sinus. No STEMI. I have reviewed and interpreted ECG and agree with software generated interpretation.
[2021-05-09 10:33] LABS: Abs Immature Grans 0.02 10^3/uL (0.0-0.06); Absolute Basophil Count 0.07 10^3/uL (0.0-0.2); Absolute Lymphocyte Count 1.03 10^3/uL (1.2-3.4); Absolute Neutrophil Count 5.43 10^3/uL (1.2-6.7); HCT 47.6 % (40.0-50.0); HGB 16.2 g/dL (13.5-17.5); Immature Grans % 0.3; Lymphocytes % 14.6; MCH 31.1 pg (27.0-33.0); MCV 91.4 fL (80-95); MPV 11.4 fL (8.0-11.0); Monocytes % 7.1; Nucleated RBC 0 %; Platelet Count 225 10^3/uL (130-400); RBC 5.21 10^6/uL (4.36-5.78); RDW 12.4 % (11.8-14.1); RDW-SD 41.6 fL; WBC 7.05 10^3/uL (4.4-10.8)
[2021-05-09 10:48] LABS: ALT 34 U/L (16-63); AST 22 U/L (15-37); Albumin 4.1 g/dL (3.4-5.0); Alkaline Phosphatase 132 U/L (46-116); Anion Gap 8.1 mmol/L (3-11); BUN 12 mg/dL (7-18); Bilirubin, Total 0.3 mg/dL (0.2-1.0); CO2 28.9 mmol/L (21.0-32.0); CREATININE 0.9 mg/dL (0.70-1.30); Calcium 9.7 mg/dL (8.5-10.1); Chloride 102 mmol/L (98-107); Glucose 112 mg/dL (74-106); Magnesium 1.9 mg/dL (1.8-2.4); Potassium 3.7 mmol/L (3.5-5.1); Sodium 139 mmol/L (136-145); Total Protein 7.8 g/dL (6.4-8.2); Troponin I < 50 ng/L (<or=60)
[2021-05-09 10:57] LABS: Lipase 125 U/L (73-393)
[2021-05-09] MEDS: ACETAMINOPHEN 1,000 MG/100 ML BTL 400 MG IVPB (10:58)
[2021-05-09] MEDS: Normal Saline 1,000 ML 1000 ML IV (10:58)
[2021-05-09] MEDS: Sucralfate 1 GM TAB PO (10:59)
[2021-05-09] MEDS: Famotidine 20 MG/2 ML VIAL IVP (11:00)
--- NOTE | 2021-05-09 11:39 | DI.CT_ITS ---
Exam(s) CT THORAX CTA EXAM: CT THORAX CTA CLINICAL HISTORY: chest pain, R scapula pain. TECHNIQUE: Imaging Protocol: Axial CT angiography was performed with multi-slice acquisition and mu lti-planar and/or 3D reconstructions. CONTRAST MATERIAL: Intravenous: Omnipaque 350 Contrast volume:100 ml COMPARISON: US ABDOMEN ULTRASOUND (P) from 05/25/2015 CR XR ribs LT w PA lat chest from 04/07/2018 CR XR SHOULDER RT COMPLETE 2+V from 09/05/2019 CR XR CLAVICLE RT from 12/10/2019 FINDINGS: Pulmonary Arteries: No evidence of filling defect to suggest pulmonary emboli. Tracheobronchial tree: Patent where visualized. Mediastinum and Linda: No dominant adenopathy or fluid collection. Pulmonary parenchyma: No consolidation or dominant measurable mass. Pleura: No effusion or pneumothorax. Heart: The heart is not dilated. No coronary artery calcifications are seen. Aorta: Ascending aorta 3.8 cm. No dissection. Upper abdomen: Unremarkable. Bones: Degenerative changes in the thoracic spine. No compression fractures. Old right upper rib fr actures. Old left lower rib fractures. 17.5 millimeter lytic, expansile lesion in the upper sternum . IMPRESSION: No evidence of pulmonary embolism or aortic dissection. Lungs clear.. 17 millimeter lytic lesion upper sternum. Findings could represent plasmacytoma, multiple myeloma or metastatic disease. RADIATION DOSE DELIVERED: Total DLP DATA REPOSITORY: All CT scans at this facility are submitted to the National Radiology Data Registry (NRDR) Dose Index Registry (DIR) with the [employer] (ACR). RADIATION OPTIMIZATION: All CT scans at this facility use at least one of these dose optimization te chniques: automated exposure control; mA and/or kV adjustment per patient size (includes targeted exa ms where dose is matched to clinical indication); or iterative reconstruction.
[2021-05-09] MEDS: Omnipaque 350 MG/ML 100 ML BTL IJ (11:40)
--- NOTE | 2021-05-09 12:15 | RT.EKG_ITS ---
APPROVED REPORT Exam: Resting ECG Reason for Exam: chest pain Patient Location: E HR:67 bpm ECG Measurements Heart Rate 67 AXIS OH 182 P 62 QRSd 98 QRS 23 QT 402 T 49 QTc 425 Conclusion Sinus rhythm...normal P axis, V-rate 60- 99. Sinus. Normal axis. No STEMI. I have reviewed and interpreted ECG and agree with software generated interpretation.
[2021-05-09 12:59] LABS: Troponin I < 50 ng/L (<or=60)
[2021-05-09] MEDS: diazePAM 5 MG TAB PO (13:29)
--- NOTE | 2021-05-09 14:01 | NUR.NOTE ---
Nursing Note: Pt info given to PCP to be seen in a week for poss. stress test, ECG and chest pain. Christin, ED
--- NOTE | 2021-05-11 10:10 | NUR.NOTE ---
Nursing Note: Patient called asking about the prescription that he thought was going to be sent to [facility]. I checked the discharge and the prescription was printed. I called the patient back and he is now aware that it is printed. Lianna Gomez
== END 2021-05-09 14:46 | disposition home or self-care (01) ==
PROVIDERS: Emergency Provider Physician Assistant; PCP Student in an Organized Health Care Education/Training Program
DX: R07.9 Chest pain, unspecified (principal); G89.29 Other chronic pain; M54.89 Other dorsalgia; M79.601 Pain in right arm
CPT/HCPCS: 36415; 71275; 80053; 83690; 93005; 96361; 96374; 96375; 99285; 83735; 84484; 85025; 93010; 99284; J0131; J3490

== ENCOUNTER 2021-05-20 01:59 | Outpatient (CLI) | payer MEDICARE, SELFPAY ==
--- NOTE | 2021-05-20 06:30 | DI.US_ITS ---
Exam(s) US ABDOMEN LIMITED EXAM: US ABDOMEN LIMITED CLINICAL HISTORY: eval GB; r/o cholecystitis,RUQ PAIN, CONSTIPATION,R10.11 TECHNIQUE: Ultrasound abdomen performed using standard protocol. COMPARISON: CT CT THORAX CTA from 05/09/2021 FINDINGS: There is no ascites evident. LIVER: There are no hepatic lesions evident nor dilatation of intrahepatic ducts. GALLBLADDER/BILIARY: There are no gallstones. No gallbladder wall edema nor pericholecystic fluid. The common hepatic duct isnot dilated, measuring 4mm at the level of louis hepatis. PANCREAS: There is no evidence of pancreatic mass nor dilatation of the pancreatic duct. RIGHT KIDNEY:No evidence of solid mass, calculus, nor hydronephrosis. No cortical cysts evident. IMPRESSION: 1. No evidence of cholelithiasis nor dilatation of the biliary tree. 2. No other significant ultrasound findings in the right upper quadrant. 3. There is no ascites. DATA REPOSITORY:
--- NOTE | 2021-05-20 12:53 | DI.RAD_ITS ---
Exam(s) XR ABDOMEN FLAT UPRIGHT EXAM: XR ABDOMEN FLAT UPRIGHT CLINICAL HISTORY: eval for stool burden,CONSTIPATION/OBSTIPATION,K59.00. TECHNIQUE: 2D digital imaging was performed. COMPARISON: No exams were available for comparison FINDINGS: Two views (supine and upright (of the abdomen reveal no bowel obstruction or free intraperitoneal air . The stomach is not distended. There are air-filled distal small bowel loops in the right-side of the abdomen which do not appear distended. Moderate amount of fecal material noted in the rectum. N o obvious calcifications seen over the kidneys nor along course of the ureters. Phleboliths are note d in left side of the pelvis. Posterior wall right hip acetabular abnormality which is not have acute appearance. Facet arthropath y noted in the lower lumbar spine IMPRESSION: No bowel obstruction. No free air. DATA REPOSITORY: RADIATION DOSE DELIVERED:
== END 2021-05-20 02:19 ==
PROVIDERS: PCP Student in an Organized Health Care Education/Training Program; Visit Provider Student in an Organized Health Care Education/Training Program
DX: K59.00 Constipation, unspecified (principal); M25.511 Pain in right shoulder; R10.11 Right upper quadrant pain
CPT/HCPCS: 74019; 76705

== ENCOUNTER 2021-05-30 02:01 | Outpatient (CLI) | payer MEDICARE, SELFPAY ==
--- NOTE | 2021-05-30 07:30 | DI.CT_ITS ---
Exam(s) CT CHEST/ABD/PEL W EXAM: CT CHEST/ABD/PEL W CLINICAL HISTORY: acute shoulder/chest/back pain,incidental lytic lesion sternum,? plasmacyto. TECHNIQUE: Imaging Protocol: Axial computed tomography images with coronal and sagittal reformatted images were created and reviewed CONTRAST MATERIAL: Intravenous: Omnipaque 350 Contrast volume:100 ml Oral: yes COMPARISON: US ABDOMEN ULTRASOUND (P) from 05/25/2015 CR XR ribs LT w PA lat chest from 04/07/2018 CR XR SHOULDER RT COMPLETE 2+V from 09/05/[address] HEAD CERVICAL SPINE WO from 02/16/2020 CR XR CLAVICLE RT from 03/24/[address] THORAX CTA from 05/09/2021 FINDINGS: CHEST: Tracheobronchial tree: Patent where visualized. Mediastinum and Linda: No dominant adenopathy or fluid collection. Pulmonary parenchyma: No consolidation or dominant measurable mass. Pleura: No effusion or pneumothorax. Lymph nodes: Within normal limits. Aorta: Thoracic portion non-dilated. Heart: Normal size. Coronary artery calcifications and stent. Bones: interval increase in size of lytic lesion in the sternum, with increased cortical expansion, measuring 2.6 by 2.0 by 2.8 cm. There is also pathologic fracture. ABDOMEN: Liver: Abnormal low-density lesion in the superior left lobe of the liver, beneath the diaphragm. Que stion of an adjacent mass between the diaphragm and left and stomach versus contiguous liver mass ext ending beneath the diaphragm. No additional liver lesions. Approximate size 9.2 x 3.5 x 5 cm.. Gallbladder and biliary tract: No radiodense calculus or dilation. Pancreas: Normal density, no abnormal calcifications or inflammatory process. Spleen: Normal. Kidneys: Normal size, contour and axis. No radiodense stones or obstructive uropathy. No masses seen. Adrenal glands: No masses seen. Aorta: Abdominal portion non-dilated. Minimal atherosclerotic changes Lymph nodes: 2 nodes seen adjacent to the mass in the mesentery measuring between the left lobe of th e liver and stomach 1.6 and 1.4 cm in size. Soft tissues: Unremarkable. PELVIS: Bladder: Symmetric distention, no gross wall thickening. Bowel: No obstruction or bowel wall thickening. Peritoneal cavity: No ascites, collection or mesenteric inflammatory response. Bones: Degenerative changes. Unremarkable for age.. No additional lytic lesions. Reproductive organs: Status post prostatectomy. IMPRESSION: Interval increase in size of lytic lesion in the sternum now with pathologic fracture.No additional b palmer lytic lesions in the chest, abdomen or pelvis. . Ill-defined mass in the left lobe of the liver, extending beneath the diaphragm. Adjacent lymph nodes . No evidence of remote metastatic disease. RADIATION DOSE DELIVERED: 1,013.59mGy.cm Total DLP DATA REPOSITORY: All CT scans at this facility are submitted to the National Radiology Data Registry (NRDR) Dose Index Registry (DIR) with the [employer] (ACR). RADIATION OPTIMIZATION: All CT scans at this facility use at least one of these dose optimization te chniques: automated exposure control; mA and/or kV adjustment per patient size (includes targeted exa ms where dose is matched to clinical indication); or iterative reconstruction.
[2021-05-30] MEDS: Omnipaque 350 MG/ML 50 ML BTL PO (14:12)
[2021-05-30] MEDS: Breeza Beverage 473 ML BTL PO ×2 (14:13→14:14)
[2021-05-30] MEDS: Omnipaque 350 MG/ML 100 ML BTL IJ (15:25)
== END 2021-05-30 02:21 ==
PROVIDERS: PCP Student in an Organized Health Care Education/Training Program; Visit Provider Student in an Organized Health Care Education/Training Program
DX: M25.511 Pain in right shoulder (principal); R07.9 Chest pain, unspecified; M54.89 Other dorsalgia; M89.8X8 Other specified disorders of bone, other site; K76.89 Other specified diseases of liver; R59.0 Localized enlarged lymph nodes; Z90.79 Acquired absence of other genital organ(s); M84.48XA Pathological fracture, other site, initial encounter for fracture
CPT/HCPCS: 74177; 71260; J3490; Q9967

== ENCOUNTER 2021-06-03 03:48 | Outpatient (CLI) | payer MEDICARE, SELFPAY ==
[2021-06-03 12:59] LABS: Abs Immature Grans 0.04 10^3/uL (0.0-0.06); Absolute Basophil Count 0.06 10^3/uL (0.0-0.2); Absolute Lymphocyte Count 0.92 10^3/uL (1.2-3.4); Absolute Monocyte Count 0.56 10^3/uL (0.1-0.8); Absolute Neutrophil Count 6.78 10^3/uL (1.2-6.7); Basophils % 0.7; HGB 15.7 g/dL (13.5-17.5); Immature Grans % 0.5; MCH 30.5 pg (27.0-33.0); MCHC 34.1 % (32.0-36.0); MCV 89.3 fL (80-95); MPV 10.9 fL (8.0-11.0); Monocytes % 6.7; Neutrophils % 81.1; Nucleated RBC 0 %; Platelet Count 264 10^3/uL (130-400); RBC 5.15 10^6/uL (4.36-5.78); RDW 12.2 % (11.8-14.1); RDW-SD 40.2 fL; WBC 8.36 10^3/uL (4.4-10.8)
[2021-06-03 13:59] LABS: ALT 47 U/L (16-63); AST 29 U/L (15-37); Albumin 4.2 g/dL (3.4-5.0); Alkaline Phosphatase 132 U/L (46-116); Anion Gap 10.4 mmol/L (3-11); BUN 7 mg/dL (7-18); Bilirubin, Total 0.3 mg/dL (0.2-1.0); CO2 26.6 mmol/L (21.0-32.0); CREATININE 0.9 mg/dL (0.70-1.30); Calcium 9.8 mg/dL (8.5-10.1); Calculated LDL 77 mg/dL (<100); Chloride 101 mmol/L (98-107); Cholesterol 173 mg/dL (<200); Glucose 121 mg/dL (74-106); HDL Cholesterol 61 mg/dL (40-60); Potassium 3.8 mmol/L (3.5-5.1); Sodium 138 mmol/L (136-145); Total Protein 7.5 g/dL (6.4-8.2); Triglyceride 176 mg/dL (<150)
[2021-06-03 14:10] LABS: Bilirubin, Direct 0.1 mg/dL (0.0-0.2)
[2021-06-03 22:04] LABS: CRP, High Sensitivity 6.47 mg/L (See Note)
[2021-06-06 05:29] LABS: Vitamin D 25 Total 43.9 ng/mL (30-100)
[2021-06-06 13:22] LABS: Albumin 61.9 % (55.8-66.1); Total Protein 7.1 g/dL (6.3-8.2)
[2021-06-06 20:51] LABS: Beta 2 GP1 Ab IgM >150.0 U/mL
== END 2021-06-03 03:49 | disposition home or self-care (01) ==
LOC: LBO 03:48
PROVIDERS: PCP Student in an Organized Health Care Education/Training Program; Visit Provider Student in an Organized Health Care Education/Training Program
DX: Z13.220 Encounter for screening for lipoid disorders (principal); M89.9 Disorder of bone, unspecified; E55.9 Vitamin D deficiency, unspecified; M85.89 Other specified disorders of bone density and structure, multiple sites; N28.9 Disorder of kidney and ureter, unspecified; R74.8 Abnormal levels of other serum enzymes; R16.0 Hepatomegaly, not elsewhere classified
CPT/HCPCS: 36415; 80048; 80061; 80076; 82306; 86141; 86146; 84165; 85025

== ENCOUNTER 2021-06-21 01:54 | Outpatient (CLI) | payer MEDICARE, SELFPAY ==
--- NOTE | 2021-06-21 08:08 | DI.MRI_ITS ---
Exam(s) MR ABDOMEN WO/W EXAM: MR ABDOMEN WO/W CLINICAL HISTORY: eval mass, esstential htn, liver mass lt lobe, I10, R16.0 TECHNIQUE: Multiplanar multisequence MRA of the Abdomen was performed. CONTRAST MATERIAL: IV Contrast: 15 mL of Dotarem contrast administered. COMPARISON: CT CT CHEST/ABD/PEL W from 05/30/2021 FINDINGS: Liver: There is a heterogeneously enhancing mass in the left lobe of the liver. It measures at least 10 cm x 5 cm. It is hyperintense to the liver on the T2 weighted images (isointense to the spleen). It is hypointense on the T1 weighted images. It appears separate from the adjacent pancreas and st omach. There does not appear to be involvement of the gallbladder. There are multiple nodules seen in the anterior abdomen adjacent to the anterior liver, stomach and transverse colon suspicious for o mental/mesenteric implants. Pancreas: Unremarkable. Gallbladder and Bile Ducts: Unremarkable. Adrenals: Unremarkable. Kidneys: Unremarkable. Spleen: Unremarkable. Bowel: Unremarkable. Aorta: Unremarkable. Soft Tissues: Unremarkable. Bone: Unremarkable. Lymph Nodes: There do appear to be enlarged lymph nodes adjacent to the pancreatic head. IMPRESSION: 1. 10 cm mass involving the left lobe of the liver. Primary hepatic neoplasm should be considered. Metastatic disease cannot be excluded. 2. Soft tissue nodule seen in the anterior abdomen suspicious for omental/mesenteric metastases. 3. Enlarged lymph nodes seen in the upper abdomen adjacent to the pancreatic head. DATA REPOSITORY:
[2021-06-21] MEDS: Gadoterate meglumine 20 ML VIAL 15 ML IVP (12:31)
== END 2021-06-21 02:14 ==
PROVIDERS: PCP Student in an Organized Health Care Education/Training Program; Visit Provider Student in an Organized Health Care Education/Training Program
DX: R16.0 Hepatomegaly, not elsewhere classified (principal); I10 Essential (primary) hypertension; D37.6 Neoplasm of uncertain behavior of liver, gallbladder and bile ducts; D48.4 Neoplasm of uncertain behavior of peritoneum; R59.0 Localized enlarged lymph nodes
CPT/HCPCS: 74183

== ENCOUNTER 2021-07-01 00:23 | Outpatient (CLI) | payer MEDICARE, SELFPAY ==
--- NOTE | 2021-07-01 06:41 | DI.NM_ITS ---
Exam(s) NM HEPATOBILIARY SCAN GRP EXAM: NM HEPATOBILIARY SCAN GRP CLINICAL HISTORY: evaluate cholecystic pain,neg us,elevated alk phos,ruq pain,constipation. TECHNIQUE: Injected dose: 4.5 mCi Tc-99 mebrofenin Initial dynamic images: 60 minutes Delayed images 90 minutes and 2 hours. COMPARISON: CT CT CHEST/ABD/PEL W from 05/30/2021 MR MR ABDOMEN WO/W from 06/21/2021 FINDINGS: Normal hepatic transit time. Photopenic defect in the superior left lobe of the liver consistent wit h mass seen on CT and MRI. Prompt excretion into the small bowel. Gallbladder not visualized. Gallbladder appeared normal on both prior CT and MRI. IMPRESSION: Nonvisualization of the gallbladder could indicate acute or chronic cholecystitis. SNM guidelines: Gallbladder visualization should be present by 3 hours. Delayed uofvdna-ok-cssor cruz sit beyond 60 min raises the suspicion for partial common bile duct (CBD) obstruction. Gallbladder ejection fraction <35% has a good correlation with acalculous disease (i.e., chronic acal culous cholecystitis, cystic duct syndrome, sphincter of Oddi disease).
== END 2021-07-01 00:43 ==
PROVIDERS: PCP Student in an Organized Health Care Education/Training Program; Visit Provider Student in an Organized Health Care Education/Training Program
DX: R10.11 Right upper quadrant pain (principal); R74.8 Abnormal levels of other serum enzymes; K59.00 Constipation, unspecified; K82.8 Other specified diseases of gallbladder; K76.89 Other specified diseases of liver
CPT/HCPCS: 78227

== ENCOUNTER 2021-07-02 16:25 | Emergency (ER) | payer MEDICARE, SELFPAY ==
[2021-07-02 16:36] VITALS: BP 150/94; PULSE 82; RESP 16; TEMP 36.7; O2SAT 98
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
[2021-07-02 19:25] VITALS: BP 154/86; PULSE 80; RESP 16; O2SAT 99
== END 2021-07-02 19:31 | disposition home or self-care (01) ==
PROVIDERS: Emergency Provider Physician Assistant; PCP Student in an Organized Health Care Education/Training Program
DX: R04.0 Epistaxis (principal)
CPT/HCPCS: 99283; 99282

== ENCOUNTER 2021-07-19 19:37 | Emergency (ER) | payer MEDICARE, SELFPAY ==
[2021-07-19 19:40] VITALS: BP 160/88; PULSE 82; RESP 18; TEMP 37.6; O2SAT 97
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
[2021-07-19 20:45] VITALS: BP 154/62; PULSE 64; RESP 18; O2SAT 99
[2021-07-19] MEDS: Oxymetazolone 0.05% SPRAY 15 ML BTL (20:45)
== END 2021-07-19 20:45 | disposition home or self-care (01) ==
PROVIDERS: Emergency Provider Student in an Organized Health Care Education/Training Program; PCP Student in an Organized Health Care Education/Training Program
DX: R04.0 Epistaxis (principal)
CPT/HCPCS: 30901